=== PATIENT | female | born 1960 | race Caucasian/White ===

== ENCOUNTER 2021-05-17 10:44 | Emergency (ER) | payer OTHER, SELFPAY ==
[2021-05-17 11:03] VITALS: BP 149/85; PULSE 96; RESP 20; TEMP 36.9; O2SAT 100
--- NOTE | 2021-05-17 11:34 | ED.FEMALEGU ---
HPI - Female Genitourinary General Chief complaint: Urogenital-Female Stated complaint: frequent urge to urinate Source: patient and RN notes reviewed Limitations: no limitations History of Present Illness HPI Narrative: The patient, on several routine meds, presents with urinary symptoms. Patient states she has a couple day history of urinary frequency, urgency and dysuria. Symptoms are mild worse with micturition like prior UTI, unlike prior kidney stone. No hematuria, fever, vomiting/diarrhea, low back pain, abdominal pain, vaginal discharge. The patient has been informed that they may have pre-hypertension or Hypertension based on a BP reading in the department. I recommend that the patient call the primary care provider listed on their discharge instructions or a physician of their choice this week to arrange follow up for further evaluation of possible pre-hypertension or Hypertension Related Data Home Medications Medication Instructions Recorded Confirmed Lactobacillus rhamnosus GG 1 cap PO DAILY 05/17/21 05/17/21 [Culturelle] cyproheptadine 4 mg PO BID 05/17/21 05/17/21 lubiprostone [Amitiza] 8 mcg PO BID 05/17/21 05/17/21 nortriptyline 10 mg PO HS 05/17/21 05/17/21 omeprazole 20 mg PO DAILY 05/17/21 05/17/21 zolmitriptan 5 mg PO ONCE 05/17/21 05/17/21 Allergies Allergy/AdvReac Type Severity Reaction Status Date / Time azithromycin Allergy Other Verified 05/17/21 11:19 tramadol Allergy Other Verified 05/17/21 11:19 Review of Systems Review of Systems: General/Constitutional: No weight loss,fever Eyes: N0: Redness,discharge Ears/Nose/Throat: No: Epistaxis,ear discharge Respiratory: Denies: Hemoptysis Gastrointestinal: No Vomiting, Bleeding-rectal Skin: No Lumps, eruption Neurologic: No Focal Weakness,Sz Hematologic: Denies: Petechiae/Purpura Psychiatric: No: Suicida ideationl All Other Systems: Reviewed and Negative PMFSH Comments At time of signature, agree with nursing past medical, surgical, social and family history. There is no relevant family history pertinent to the presenting complaint Exam Narrative: General Appearance: Well appearing, No distress EYE: PERRLA, Conjunctiva clear Ears: External ear normal Nose: Normal nose Mouth/Throat: Normal appearing, Normal lips Neck: Supple Respiratory: Airway patent, No respiratory distress Cardiovascular: RRR Abdomen: Soft, Non-tender, Musculoskeletal: Full ROM Skin: Warm, Dry Neurological: A&O x3, CN II-X intact Psychiatric: Normal mood, Normal affect Course Vital Signs Vital signs: Vital Signs Temperature 98.4 F 05/17/21 11:03 Pulse Rate 96 05/17/21 11:03 Respiratory Rate 20 05/17/21 11:03 Blood Pressure 149/85 H 05/17/21 11:03 Pulse Oximetry 100 05/17/21 11:03 Temperature 98.4 F 05/17/21 11:03 Pulse Rate 96 05/17/21 11:03 Respiratory Rate 20 05/17/21 11:03 Blood Pressure 149/85 H 05/17/21 11:03 Pulse Oximetry 100 05/17/21 11:03 MDM - Female Genitourinary Lab Data Labs: Urine Glucose Negative Reference Range: Negative Urine Bilirubin Negative Reference Range: Negative Urine Ketone Negative Reference Range: Negative Urine Specific [place] 1.015 Reference Range:1.001-1.035 Urine Blood 2+ Reference Range: Negative * * Urine pH 7.0 Reference Range: 5.0-9.0 Urine Protein Negative Reference Range: Negative Urine Urobilinogen 0.2
== END 2021-05-17 11:36 | disposition home or self-care (01) ==
PROVIDERS: Emergency Provider Emergency Medicine; PCP Family Medicine
DX: N30.00 Acute cystitis without hematuria (principal)
CPT/HCPCS: 81003; 87086; 87088; 99213; G0463

== ENCOUNTER 2022-02-18 05:32 | Observation (INO) | payer OTHER, SELFPAY ==
[2022-02-18] VITALS (27 sets, daily range): BP systolic 109–169; BP diastolic 61–118; PULSE 56–101; RESP 6–21; TEMP 35.3–36.7; O2SAT 78–100; BMI 24.5
--- NOTE | ~2022-02-18 | CT_ITS ---
EXAMINATION: CT abdomen pelvis wo con DATE: 02/18/2022 05:59 INDICATION: Left flank pain. TECHNIQUE: Computed tomography (CT) of the abdomen and pelvis was performed without intravenous contr ast. Automated exposure control and iterative reconstruction technique were employed. The dose-length product was 252.63 mGy-cm. COMPARISON: None. FINDINGS: The visualized portions of the lung bases demonstrate mild atelectasis. No pleural effusion . The heart size is normal. No pericardial effusion. The liver, gallbladder, spleen, pancreas, and ad renal glands are normal. There is a 6 mm cyst in right kidney. There is a 1 mm stone in right kidney. There is a 2 mm stone in distal left ureter. There is mild left hydronephrosis and hydroureter. Ther e is a 3 mm stone in left kidney. There are no dilated loops of bowel. The appendix is normal. There is an umbilical hernia containing fat. There are no pathologically enlarged lymph nodes. There is no free intraperitoneal fluid. There is moderate lower lumbar spondylosis. IMPRESSION: 1. 2 mm stone in distal left ureter with mild left hydronephrosis and hydroureter. 2. Bilateral nonobstructing kidney stones. Reviewed, dictated and finalized at location A. IMPRESSION: 1. 2 mm stone in distal left ureter with mild left hydronephrosis and hydrouret er. 2. Bilateral nonobstructing kidney stones.
--- NOTE | 2022-02-18 05:46 | ED.GENADULT ---
HPI - General Adult General Chief complaint: Urogenital-Female Stated complaint: LL side pain, frequnt urination Time Seen by Provider: 02/18/22 05:39 History of Present Illness HPI narrative: Patient is a 61-year-old female who presents the emergency department with chief complaint of left flank pain. Patient reports that yesterday she started feeling a little uncomfortable feeling in her left flank area and reports that she noticed that she was having to urinate a little bit more frequently the patient states that throughout the evening it is started to get worse and now she has severe pain in her left flank the patient reports feels exactly like when her recent kidney stones before in the past patient reports that she has been able to pass all of her stones previously and has not required any urological intervention. Patient reports she has some mild nausea with this. Related Data Home Medications Medication Instructions Recorded Confirmed Lactobacillus rhamnosus GG 10 1 cap PO DAILY 05/17/21 05/17/21 billion cell capsule (Culturelle) cyproheptadine 4 mg tablet 4 mg PO BID 05/17/21 05/17/21 lubiprostone 8 mcg capsule 8 mcg PO BID 05/17/21 05/17/21 (Amitiza) nortriptyline 10 mg capsule 10 mg PO HS 05/17/21 05/17/21 omeprazole 20 mg capsule,delayed 20 mg PO DAILY 05/17/21 05/17/21 release zolmitriptan 5 mg tablet 5 mg PO ONCE 05/17/21 05/17/21 Allergies Allergy/AdvReac Type Severity Reaction Status Date / Time azithromycin Allergy Other Verified 02/18/22 05:37 tramadol Allergy Other Verified 02/18/22 05:37 Review of Systems Review of Systems: A 10 system review of systems was completed on the patient and is negative except for what is stated in the HPI. Nursing and ancillary documentation was reviewed. Exam Narrative: GENERAL: Well-appearing, well-nourished, and in mild pain distress. HEAD: Normocephalic, atraumatic. EYES: PERRLA and EOMI. ENT: Nares clear, no rhinorrhea or epistaxis. Mucous membranes moist. NECK: Supple. CHEST: Clear to auscultation. No respiratory distress. HEART: Regular rate and rhythm. No murmur heard. Normal peripheral pulses. ABDOMEN: Soft, nontender, nondistended, normal active bowel sounds. EXTREMITIES: Normal range of motion. No edema. SKIN: Warm, dry, no rash. NEURO: No focal deficits. Alert and oriented x3. PSYCH: Normal mood and affect. Course Vital Signs Vital signs: Vital Signs Temperature 36.6 C 02/18/22 05:34 Pulse Rate 71 02/18/22 05:34 Respiratory Rate 20 02/18/22 05:34 Blood Pressure 169/84 H 02/18/22 05:34 Pulse Oximetry 100 02/18/22 05:34 Oxygen Delivery Room Air 02/18/22 05:34 Temperature 36.6 C 02/18/22 05:34 Pulse Rate 71 02/18/22 05:34 Respiratory Rate 20 02/18/22 05:34 Blood Pressure 169/84 H 02/18/22 05:34 Pulse Oximetry 100 02/18/22 05:34 Oxygen Delivery Room Air 02/18/22 05:34 Medical Decision Making Vital Signs Vital Signs: Vital Signs Temperature 36.6 C 02/18/22 05:34 Pulse Rate 02/18/22 05:34 Respiratory Rate 02/18/22 05:34 Blood Pressure 169/84 H 02/18/22 05:34 Pulse Oximetry 100 02/18/22 05:34 Oxygen Delivery Room Air 02/18/22 05:34 Temperature 36.6 C 02/18/22 05:34 Pulse Rate 02/18/22 05:34 Respiratory Rate 02/18/22 05:34 Blood Pressure 169/84 H 02/18/22 05:34 Pulse Oximetry 100 02/18/22 05:34 Oxygen Delivery Room Air 02/18/22 05:34 Lab Data Result diagrams: 02/18/22 05:47 02/18/22 05:47 Labs: Lab Results 02/18/22 02/18/22 02/18/22 Range/Units 05:47 05:47 05:47 WBC 6.4 (4.5-10.0) K/mm3 RBC 4.14 L (4.2-5.4) M/mm3 Hgb 13.0 (12.0-15.0) g/dL Hct 39.4 (37.0-47.0) % MCV 95.2 (80-100) fl MCH 31.4 (26-34) pg MCHC 33.0 (32-36) g/dl RDW 11.9 (11.5-14.5) % Plt Count 272 (150-375) k/mm3 MPV 8.9 (7.4-10.4) fl Immature Gran % (Auto) 0.2 (0-0.5)
[2022-02-18 05:54] LABS: Basophils Absolute Auto 0.1 K/mm3 (0.0-0.1); Basophils Percent Auto 0.8 % (0.2-1.2); Eosinophils Absolute Auto 0.1 K/mm3 (0-0.3); Eosinophils Percent Auto 1.1 % (0-4.4); Hematocrit 39.4 % (37.0-47.0); Immature Granulocyte Absolute 0.01 K/mm3 (0.00-0.031); Immature Granulocyte Percent A 0.2 % (0-0.5); Lymphocytes Absolute Auto 3.36 K/mm3 (0.9-3.2); Lymphocytes Percent Auto 52.2 % (18.3-44.2); Mean Corpuscular Hemoglobin 31.4 pg (26-34); Mean Corpuscular Volume 95.2 fl (80-100); Mean Platelet Volume 8.9 fl (7.4-10.4); Monocytes Absolute Auto 0.5 K/mm3 (0.1-0.6); Monocytes Percent Auto 7.8 % (2.6-8.5); Neutrophils Absolute Auto 2.5 K/mm3 (1.3-6.7); Neutrophils Percent Auto 37.9 % (45.5-73.1); Platelet Count Result 272 k/mm3 (150-375); Red Blood Count 4.14 M/mm3 (4.2-5.4); Red Cell Distribution Width 11.9 % (11.5-14.5); White Blood Count 6.4 K/mm3 (4.5-10.0)
[2022-02-18 05:58] LABS: Add Urine Microscopic? YES; Appearance Urine Clear (Clear); Bilirubin Urine Negative (Negative); Blood Urine 3+ (Negative); Color Urine Yellow (Yellow); Glucose Urine UA Negative (Negative); Ketones Urine Negative (Negative); Leukocyte Esterase Ur Negative LEU/UL (Negative); Nitrate Urine Negative (Negative); Protein Urine Negative (Negative); Specific Grav Ur 1.015 (1.001-1.035); Urobilinogen Urine 0.2 mg/dL (<2.0); pH Urine 7.5 (5.0-9.0)
[2022-02-18] MEDS: MORPHINE SULFATE (*CRX) 4 MG/ML INJ IV PUSH (06:01)
[2022-02-18] MEDS: SODIUM CHLORIDE 0.9% IV 1,000 ML 999 ML IV CONT (06:02)
[2022-02-18] MEDS: ONDANSETRON INJ 4 MG/2 ML VIAL IV PUSH ×2 (06:02→07:44)
[2022-02-18 06:04] LABS: Bacteria Urine Trace /hpf; Mucus Urine Rare /lpf; RBC Urine >75 /hpf (0-2); WBC Urine 0-3 /hpf
[2022-02-18 06:05] LABS: Alanine Aminotransferase 14 U/L (6-35); Albumin Level 4.5 g/dL (3.5-5.1); Alkaline Phosphatase 91 U/L (38-126); Anion Gap 11 mmol/L (8-16); Aspartate Amino Transferase 23 U/L (14-36); Bilirubin,Total 0.5 mg/dL (0.2-1.3); Blood Urea Nitrogen 18 mg/dL (7-17); Calcium 9.7 mg/dL (8.4-10.2); Carbon Dioxide 29 mmol/L (22-30); Chloride 102 mmol/L (98-107); Estimated CRCL calculation 51 ml/min; Estimated Glomerular Filt Rate > 60; Glucose 115 mg/dL (65-110); Lipase 158 U/L (23-300); Potassium 3.8 mmol/L (3.4-5.0); Sodium 142 mmol/L (137-145)
[2022-02-18] MEDS: HYDROmorphone HCL INJ (*CRX) 1 MG/ML SYR IV PUSH ×2 (06:27→07:03)
[2022-02-18] MEDS: KETOROLAC 30 MG/ML VIAL (*BKC) 15 MG IV PUSH (07:02)
[2022-02-18] MEDS: TAMSULOSIN HCL 0.4 MG CAPSULE PO (07:04)
[2022-02-18] MEDS: NALOXONE HCL 0.4 MG/ML VIAL IV PUSH (07:37)
--- NOTE | 2022-02-18 07:39 | PC.NURSE ---
this RN and MARK Rao responded to patient after called out reporting patient had gone unresponsive. upon arrival to room patient was noted to be blue/marie in color. pt pulse was strong and palpable, however patient was apneic. these RNs began bagging patient and good color returned to patient skin and patient began breathing on their own after approx 30 seconds. EDP to bedside at this time. pt began responding more appropriately. pt then approx 1 min later had another episode of unresponsiveness. pt maintained strong palpable pulse but was apneic. RNs began bagging patient again and after approximately 30 seconds pt began breathing on their own and had good color return to their skin. VORB obtained for 0.4mg IV narcan which was administered. pt remains responsive at this time. will continue to monitor.
--- NOTE | 2022-02-18 11:08 | ADMGEN ---
This patient, Alison Santos, was admitted to Medical Room 343-01. Patient/family oriented to hospital policies and general routines including ID bracelet, bed and alarms, visiting hours, pain management, procedures, bathroom and other care routines, personal items, smoking policy, room service/diet, and visiting hours. Information on how to activate the Rapid Response Team has been discussed. Patient/Family are encouraged to report perceived risks to care and to ask questions if they do not understand what they are told or what they should do.
--- NOTE | 2022-02-18 13:47 | WPDURCON ---
Assessment and Plan Assessment and plan (1) Kidney stone: Code(s): N20.0 - Calculus of kidney Status: Acute Assessment and Plan: These are bilaterally non obstructive, we will watch annually with imaging. NO intervention needed. (2) Ureteral stone: Code(s): N20.1 - Calculus of ureter Status: Acute Assessment and Plan: It is in the UVJ and measures 2mm which is passable. She should push fluids and strain all urine. We may re-scan in the morning to ensure stone has passed if not seen by then and pain is still present. No surgical intervention at this time. Urology Consult Note HPI Date Seen: 02/18/22 Time Seen: 13:50 Requesting Physician: Andrei Callaway MD Primary Care Provider: April LeijaMD Consult Narrative Reason for consult: Left Ureteral Stone Narrative: Alison Santos is a 61 year old female who presented to the ER today for acute onset of left flank pain and blood in her urine that began yesterday and she thought she had a bladder infection. However, the pain became more severe and she came into the ER. She has a history of kidney stones and is a previous patient of Dr. Chilel. She was noted to have a 2mm left distal ureteral stone on CT from this morning and a 1mm right renal stone and a 3mm left renal stone which are both non obstructive. In the ER, she received Morphine which was not helpful for pain, so they administered Dilaudid 20 minutes later which caused respiratory distress as the patient was set to be discharged home from the ER to pass her stone. She was then admitted for observation of her O2 sats and we were consulted about her kidney stones and ureteral stone. She states he pain is better now but she still sees gross hematuria. She also states that the Narcan that was administered s/p her respiratory event, caused nausea and vomiting which has since resolved. She denies dysuria, fever, chills, frequency or urgency. Her WBC is 6.4 and creatinine is 0.90, UA shows only blood, no suspicion for infection and she is afebrile. Review of Systems Cardiovascular: Cardiovascular: Denies chest pain Respiratory: Respiratory: Reports no additional respiratory complaints Gastrointestinal: Gastrointestinal: Reports abdominal pain, Reports nausea and Denies vomiting Genitourinary: Genitourinary: Reports hematuria, Denies nocturia, Denies dysuria, Reports flank pain and Denies urinary urgency PMFSH Past Medical History Medical History Basal cell carcinoma of skin Gastroesophageal reflux disease Irritable bowel syndrome Kidney stones Migraines Surgical History Surgical History History of basal cell carcinoma excision History of section History of hysterectomy Social History Social History Smoking status: Never smoker Alcohol intake: never Substance use: never Spiritual care concerns: No Meds Home Medications and Allergies Home Medications Medication Instructions Recorded Confirmed Type nortriptyline 10 mg capsule 10 mg PO HS 05/17/21 02/18/22 History omeprazole 20 mg capsule,delayed 20 mg PO DAILY 05/17/21 02/18/22 History release zolmitriptan 5 mg tablet 5 mg PO DAILY PRN Migraine Headache 05/17/21 02/18/22 History Allergies Allergy/AdvReac Type Severity Reaction Status Date / Time azithromycin Allergy Other Verified 02/18/22 05:37 tramadol Allergy Other Verified 02/18/22 05:37 Vital Signs Vital Signs - 24 hr 02/18/22 05:34 02/18/22 06:07 02/18/22 06:09 Temperature 97.8 F Pulse Rate 71 Respiratory Rate 20 Blood Pressure 169/84 H 135/118 H Pulse Oximetry 100 100 100 Oxygen Delivery Room Air Oxygen Flow Rate 02/18/22 06:15 02/18/22 06:16 02/18/22 06:30 Temperature Pulse Rate Respiratory Rate Blood Pressu
[2022-02-18] MEDS: SODIUM CHLORIDE 0.9% IV 1,000 ML 125 ML IV CONT ×2 (14:13→22:30)
--- NOTE | 2022-02-18 23:00 | PM.IMHP ---
H&P: HPI History of Present Illness Date/Time: 02/18/22 23:00 Chief Complaint: Left side pain. Narrative: This is a 61-year-old female with history of kidney stones, GERD, and migraines who presented to the emergency department earlier this morning via private vehicle from home for evaluation of left-sided pain since yesterday. Yesterday afternoon she noticed that she was having to urinate more and more frequently and sometime last evening she developed a cramping pain in the left mid to lower back. Throughout the night the pain became more intense and radiated into the flank and groin. It is colicky in nature and is similar to when she had previous kidney stones. Early this morning she noticed blood in her urine and due to increasing pain she decided to come in for evaluation. She was afebrile on arrival to the ER with stable vital signs and a CT of the abdomen and pelvis showed showed a 2 mm stone in the distal left ureter with mild left hydronephrosis and hydroureter as well as bilateral nonobstructing kidney stones. Her pain was difficult to control and it looks like over the course of an hour or a little more she received a total of 4 mg of morphine, 2 mg of hydromorphone given in 2 doses 30 minutes apart, and 15 mg of ketorolac. Thereafter she was able to fall asleep and it was felt that she could be discharged home. Prior to discharge however the patient's noted that her leg fell off of the bed and seemed to stiffen up. He did not think that she was breathing so he yelled for help and on staff arrival to the room her SpO2 was reportedly in the 50s. Respirations were assisted with Ambu bag briefly and she was given Narcan 0.4 mg IV x1 with immediate response. She vomited shortly after waking and she has continued to have nausea and a headache all day. did not notice any seizure activity and there was no bowel or bladder incontinence. She has not really been able to eat or drink due to ongoing nausea. She continues to have intermittent pain although it seems much better than what it did last night. At the time my evaluation she has a severe headache that she thinks is starting to turn into a migraine. Review of Systems Review of Systems: Twelve systems were reviewed. No fever however she has had some chills and sweats. No cold or flu symptoms. No chest pain, pleuritic pain, or shortness of breath. No cough. She had a bowel movement this morning, typically is constipated from IBS. No focal weakness, visual changes, or other neurologic issues. Except as documented, all other systems were reviewed and are negative. [facility] Past Medical History Medical History Basal cell carcinoma of skin Gastroesophageal reflux disease Irritable bowel syndrome Kidney stones Migraines Surgical History Surgical History History of basal cell carcinoma excision History of section History of hysterectomy Family History Family History (Updated 02/19/22 @ 00:05 by Sue Santiago PA-C) Other Family history non-contributory Social History Social History (Updated 02/19/22 @ 00:06 by Sue Santiago PA-C) Social History: Surrogate medical decision maker: Ramy Santos, spouse. Code status: Full code. Smoking status: Never smoker Alcohol intake: never Substance use: never Living arrangements: with family Additional occupation/education comments: Ship Mate. Spiritual care concerns: No Meds Home Medications and Allergies Home Medications Medication Instructions Recorded Confirmed Type omeprazole 20 mg capsule,delayed 20 mg PO DAILY 05/17/21 02/18/22 History release zolmitriptan 5 mg tablet 5 mg PO DAILY PRN Migraine Headache 05/17/21 02/18/22 History nortriptyline 10 mg capsule 30 mg PO HS 02/18/22 02/18/22 History Allergies Allergy/AdvReac Type Severity Reaction Status Date
[2022-02-19] VITALS: PULSE 97
[2022-02-19] MEDS: NORTRIPTYLINE HCL 10 MG CAPSULE 30 MG PO (02:07)
[2022-02-19 04:00] VITALS: PULSE 91
[2022-02-19 05:52] LABS: Hematocrit 34.7 % (37.0-47.0); Hemoglobin 11.6 g/dL (12.0-15.0); Mean Corpuscular HGB Conc 33.4 g/dl (32-36); Mean Corpuscular Hemoglobin 31.4 pg (26-34); Mean Platelet Volume 9.1 fl (7.4-10.4); Platelet Count Result 217 k/mm3 (150-375); Red Blood Count 3.69 M/mm3 (4.2-5.4); Red Cell Distribution Width 11.8 % (11.5-14.5); White Blood Count 11.8 K/mm3 (4.5-10.0)
[2022-02-19 05:55] LABS: Alanine Aminotransferase 11 U/L (6-35); Albumin Level 3.4 g/dL (3.5-5.1); Alkaline Phosphatase 70 U/L (38-126); Anion Gap 9 mmol/L (8-16); Aspartate Amino Transferase 23 U/L (14-36); Bilirubin,Total 0.4 mg/dL (0.2-1.3); Blood Urea Nitrogen 20 mg/dL (7-17); Calcium 8.6 mg/dL (8.4-10.2); Carbon Dioxide 22 mmol/L (22-30); Chloride 106 mmol/L (98-107); Estimated CRCL calculation 39 ml/min; Estimated Glomerular Filt Rate 46; Glucose 118 mg/dL (65-110); Magnesium 1.8 mg/dL (1.6-2.3); Potassium 4.2 mmol/L (3.4-5.0); Sodium 137 mmol/L (137-145)
[2022-02-19 05:58] VITALS: BP 125/62; PULSE 70; RESP 14; TEMP 36.9; O2SAT 100
[2022-02-19] MEDS: SODIUM CHLORIDE 0.9% IV 1,000 ML 125 ML IV CONT (06:24)
[2022-02-19 08:00] VITALS: PULSE 97
[2022-02-19] MEDS: PANTOPRAZOLE 40 MG TABLET PO (08:44)
[2022-02-19] MEDS: TAMSULOSIN HCL 0.4 MG CAPSULE PO (08:45)
[2022-02-19] MEDS: IBUPROFEN 600 MG TABLET PO (11:59)
[2022-02-19 12:00] VITALS: PULSE 114
--- NOTE | 2022-02-19 13:15 | WPDUROPN2 ---
Progress Note: A&P Assessment and Plan (1) Bilateral nephrolithiasis: Code(s): N20.0 - Calculus of kidney Status: Acute (2) Left ureteral stone: Code(s): N20.1 - Calculus of ureter Status: Acute Assessment and Plan: The patient will continue to manage pain with oral Toradol s/p discharge and Tamsulosin to assist in passing her stone. She should push fluids. Ok to discharge when stable. She will repeat a CT scan next week and f/u in the office afterward. Subjective Subjective Date/Time Seen: 02/19/22 13:15 The patient is improved today and up moving around her room. Respiratory suppression has also improved. Her left ureteral stone has not passed and she has been straining her urine. She still has LLQ pain but it is tolerable. She continues to push fluids and take Tamsulosin. Review of Systems Cardiovascular: Cardiovascular: Denies chest pain Respiratory: Respiratory: Reports no additional respiratory complaints Gastrointestinal: Gastrointestinal: Reports abdominal pain (LLQ), Denies nausea and Denies vomiting Genitourinary: Genitourinary: Denies hematuria, Denies dysuria, Denies pelvic pain, Denies flank pain and Denies urinary urgency Exam Const: General: cooperative Resp: Effort & Inspection: normal respiratory effort Cardio: Rate: tachycardic GI: GI Palp: Yes Soft to palpation and Yes Tenderness to palpation present (GI) (LLQ) : General: Yes no CVA tenderness Extrem: Right lower extremity: no edema Left lower extremity: no edema Objective Data Vital Signs Vital Signs: Vital Signs - 24 hr 02/18/22 14:00 02/18/22 16:00 02/18/22 21:36 Temperature 97.5 F L 98.1 F Pulse Rate 67 61 84 Respiratory Rate 20 16 Blood Pressure 122/61 119/71 Pulse Oximetry 100 100 Oxygen Delivery 02/18/22 20:00 02/19/22 00:00 02/19/22 04:00 Temperature Pulse Rate 79 97 91 Respiratory Rate Blood Pressure Pulse Oximetry Oxygen Delivery 02/19/22 05:58 02/19/22 08:00 02/19/22 08:00 Temperature 98.4 F Pulse Rate 70 97 Respiratory Rate 14 Blood Pressure 125/62 Pulse Oximetry 100 Oxygen Delivery Room Air 02/19/22 12:00 Temperature Pulse Rate 114 H Respiratory Rate Blood Pressure Pulse Oximetry Oxygen Delivery Intake/Output Intake/Output: Intake & Output 02/16/22 02/17/22 02/18/22 02/19/22 23:59 23:59 23:59 23:59 Intake Total 2100 1480 Output Total 600 300 Balance 1500 1180 Meds/Results Medications: Active Medications Generic Name Dose Route Start Last Admin Trade Name Freq PRN Reason Stop Dose Admin Sodium Chloride 1,000 mls @ 125 mls/hr 02/18/22 09:15 02/19/22 06:24 Normal Saline Iv IV CONT 125 mls/hr .Q8H NATHANIEL Administration Nortriptyline HCl 30 mg 02/19/22 21:00 Nortriptyline Hcl 10 Mg Capsule PO HS NATHANIEL Ondansetron HCl 4 mg 02/18/22 09:14 Ondansetron Inj 4 Mg/2 Ml Vial IV PUSH Q4H PRN Nausea Pantoprazole Sodium 40 mg 02/19/22 09:00 02/19/22 08:44 Pantoprazole 40 Mg Tablet PO 03/21/22 08:59 40 mg DAILY NATHANIEL Administration Tamsulosin HCl 0.4 mg 02/19/22 09:00 02/19/22 08:45 Tamsulosin Hcl 0.4 Mg Capsule PO 0.4 mg QAM NATHANIEL Administration Zolmitriptan 2.5 mg 02/18/22 23:57 02/19/22 00:52 Zolmitriptan 2.5 Mg Tablet PO 2.5 mg DAILY PRN Administration Migraine Headache Radiology Results: ITS Impressions Abdomen/Pelvis CT 02/18/22 06:34 IMPRESSION: 1. 2 mm stone in distal left ureter with mild left hydronephrosis and hydroureter. 2. Bilateral nonobstructing kidney stones. Labs Labs: Laboratory Results - last 24 hr 02/19/22 02/19/22 05:22 05:22 WBC 11.8 H RBC 3.69 L Hgb 11.6 L Hct 34.7 L MCV 94.0 MCH 31.4 MCHC 33.4 RDW 11.8 Plt Count 217 MPV 9.1 Sodium 137 Potassium 4.2 Chloride 106 Carbon Dioxide 22 Anion Gap 9 BUN 20 H Creatinine 1.20 H Estim Creat Maddie
--- NOTE | 2022-02-19 13:48 | PM.DS ---
DS: Admitting Diagnosis Discharge Date 02/19/22 1423 Admitting Diagnosis Left ureterolithiasis Bilateral nephrolithiasis left hydroureteronephrosis Opioid induced respiratory depression DS: Discharge Diagnosis Discharge Diagnosis (1) Left ureteral stone: Code(s): N20.1 - Calculus of ureter Status: Acute Assessment and Plan: CT shows a 2 mm stone at the left UVJ which should be passable. We will continue with IV fluid rehydration and all urine will be strained. Urology is following. (2) Bilateral nephrolithiasis: Code(s): N20.0 - Calculus of kidney Status: Acute Assessment and Plan: Bilateral nonobstructing stones noted on CT. She will need to follow with Urology as an outpatient. (3) Hydroureteronephrosis: Code(s): N13.30 - Unspecified hydronephrosis Status: Acute Assessment and Plan: Mild left hydroureteronephrosis related to left UVJ stone. (4) Narcotic-induced respiratory depression: Code(s): R06.89 - Other abnormalities of breathing; T40.605A - Adverse effect of unspecified narcotics, initial encounter Status: Acute Assessment and Plan: Patient was given narcotics as detailed in HPI for ongoing pain related to her kidney stone. Her pain eventually became better controlled and she was able to fall asleep however noted that her respiratory status declined and the patient had an episode where she became stiff and unresponsive. SpO2 was in the 50s upon staff arrival after called out for help. Respirations were briefly assisted with Ambu bag and she had an immediate response to naloxone 0.4 mg x 1. Since that time she has had ongoing nausea and headache, unfortunately. Continue supportive care. Avoid narcotics for pain. (5) Migraine headache: Code(s): G43.909 - Migraine, unspecified, not intractable, without status migrainosus Status: Acute Assessment and Plan: Patient believes her headache is now turning into a migraine. Zomig ordered per patient request. DS: Summary Hospital Course Reason for hospitalization: left flank pain Hospital Course: Alison Santos is a 61-year-old female with history of kidney stones, GERD, and migraines who presented to the emergency department via private vehicle from home for evaluation of left-sided pain for 1 day prior to admission. The previous afternoon, she noticed urinating more and more frequently and in the evening she developed a cramping pain in the left mid to lower back. Throughout the night the pain became more intense and radiated into the flank and groin. It is colicky in nature and is similar to when she had previous kidney stones. She also noticed blood in her urine and due to increasing pain she decided to come in for evaluation. She was afebrile on arrival to the ER with stable vital signs and a CT of the abdomen and pelvis showed showed a 2 mm stone in the distal left ureter with mild left hydronephrosis and hydroureter, as well as bilateral nonobstructing kidney stones. Her pain was difficult to control and over the course of an hour or so she received a total of 4 mg of morphine, as well as 2 mg of hydromorphone given in 2 doses 30 minutes apart. She also received 15 mg of ketorolac. Thereafter she was able to fall asleep and it was felt that she could be discharged home. Prior to discharge, however the patient's noted that her leg fell off of the bed and seemed to stiffen up.? He did not think that she was breathing so he yelled for help and on staff arrival to the room her SpO2 was reportedly in the 50s. Respirations were assisted with Ambu bag briefly and she was given Narcan 0.4 mg IV x1 with immediate response. She vomited shortly after waking and c/o a headache. did not notice any seizure activity and there was no bowel or bladder incontinence. She has not been able to eat or drink due to ongoing nausea. The patient was referred fo
[2022-02-19 14:00] VITALS: BP 133/62; PULSE 102; RESP 20; TEMP 36.6; O2SAT 97
== END 2022-02-19 14:53 | disposition home or self-care (01) ==
LOC: ANHED 07:42 → ANH3MED 10:06
PROVIDERS: Emergency Medicine; Physician Assistant; Admitting Provider Internal Medicine; Emergency Provider Emergency Medicine; PCP Family Medicine; Visit Provider Internal Medicine
DX: N13.2 Hydronephrosis with renal and ureteral calculous obstruction (principal); R10.9 Unspecified abdominal pain; K21.9 Gastro-esophageal reflux disease without esophagitis; R06.89 Other abnormalities of breathing; T40.605A Adverse effect of unspecified narcotics, initial encounter; G43.909 Migraine, unspecified, not intractable, without status migrainosus
CPT/HCPCS: 36415; 74176; 80053; 81001; 83690; 83735; 85025; 85027; 96360; 96361; 96374; 96375; 96376; 99285; A9270; G0378; J1170; J1885; J2270; J2310; J2405; J7030

== ENCOUNTER → 2023-03-14 10:30 | Outpatient (CLI) | payer OTHER, SELFPAY ==
--- NOTE | ~2023-03-14 | XR_ITS ---
XR abdomen/kub 1V 03/14/2023 12:04 INDICATION: Bilateral renal stones TECHNIQUE: KUB COMPARISON: 11/21/2016 FINDINGS: Bowel gas pattern is normal. Moderate colonic fecal loading. There is no evidence of free a ir, mass, organomegaly, ascites or obstruction. No abnormal calculi are seen. The bones appear inta ct. IMPRESSION: 1: No acute abdominal abnormality identified. Reviewed, dictated and finalized at location A.
== END ==
PROVIDERS: PCP Nurse Practitioner Adult Health; Visit Provider Nurse Practitioner Adult Health
DX: N20.0 Calculus of kidney (principal)
CPT/HCPCS: 74018